=== PATIENT | female | born 1990 | race Caucasian/White ===

== ENCOUNTER → 2017-01-18 | Outpatient (CLI) | payer OTHER | LOC: MHCPAIN 13:50 | DX: G89.29 Other chronic pain (principal); M47.27 Other spondylosis with radiculopathy, lumbosacral region | CPT/HCPCS: G0463 ==

== ENCOUNTER → 2017-02-23 | Outpatient (CLI) | payer OTHER | LOC: MHCPAIN 09:16 → EDSEX 09:16 → MHCPAIN 16:39 | DX: M47.27 Other spondylosis with radiculopathy, lumbosacral region (principal); M51.16 Intervertebral disc disorders with radiculopathy, lumbar region | CPT/HCPCS: J1100; J2250; J3010; Q9967 ==

== ENCOUNTER → 2017-03-10 | Outpatient (CLI) | payer OTHER | LOC: MHCPAIN 09:27 | DX: G89.29 Other chronic pain (principal); M47.27 Other spondylosis with radiculopathy, lumbosacral region; M53.3 Sacrococcygeal disorders, not elsewhere classified | CPT/HCPCS: G0463 ==

== ENCOUNTER 2018-02-24 12:26 | Emergency (ER) | payer OTHER ==
[~2018-02-24] VITALS: Ht 172.7 cm; Wt 81.8 kg
[2018-02-24 12:29] VITALS: TEMP 97.8
[2018-02-24 13:06] LABS: BASO % 0.4 % (0.0-2.0); EOS # 0.2 (0.0-0.7); EOS % 3.6 % (0-4.0); GRAN # 2.9 (1.4-6.5); GRAN % 62.3 % (42.2-75.2); HEMATOCRIT 46.2 % (42.0-52.0); LYMPH # 1.2 (1.2-3.4); LYMPH % 24.6 % (20.0-51.0); MEAN CELL VOLUME 85 fl (80.0-100.0); MEAN CORPUSCULAR HEMOGLOBIN 29 pg (27.0-31.0); MEAN CORPUSCULAR HGB CONC 35 g/dl (33.0-37.0); MEAN PLATELET VOLUME 10.3 fl (7.4-10.4); MONO # 0.4 (0.1-0.6); MONO % 8.3 % (1.7-9.3); PLATELET COUNT 198 K/mm3 (130-400); RED BLOOD COUNT 5.47 M/mm3 (4.20-5.60); REDCELL DISTRIBUTION WIDTH-CV 11.7 % (11.5-14.5)
[2018-02-24 13:14] LABS: ALANINE AMINOTRANSFERASE 129 U/L (21-72); ALBUMIN 4.2 gm/dL (3.5-5.0); ALKALINE PHOSPHATASE 59 U/L (50-136); ANION GAP 7 mmol/L (7-16); AST,SGOT 48 U/L (15-37); BILIRUBIN,TOTAL 0.5 mg/dL (0.0-1.0); BLOOD UREA NITROGEN 16 mg/dL (9-20); CALCIUM 9.3 mg/dL (8.4-10.2); CARBON DIOXIDE 27 mmol/L (22-30); CHLORIDE 107 mmol/L (98-107); CREATININE, serum 0.88 mg/dL (0.66-1.25); GLUCOSE 104 mg/dL (74-106); LIPASE 132 U/L (23-300); POTASSIUM 4.1 mmol/L (3.4-5.0); SODIUM 141 mmol/L (137-145); TOTAL PROTEIN 7.3 gm/dL (6.4-8.2)
[2018-02-24 13:31] LABS: TROPONIN-I < 0.012 ng/mL (0.000-0.034)
[2018-02-24 13:57] VITALS: BP 120/86; PULSE 80
== END 2018-02-24 13:58 | disposition home or self-care (01) ==
LOC: COL.ER 12:26
PROVIDERS: Emergency Medicine
DX: R42 Dizziness and giddiness (principal); R07.89 Other chest pain
CPT/HCPCS: J7030

== ENCOUNTER 2020-09-26 08:33 | Emergency (ER) | payer OTHER | END 2020-09-26 08:40 | disposition home or self-care (01) | LOC: COL.ER 08:33 → EDSTATUS 08:46 | DX: Z48.02 Encounter for removal of sutures (principal) ==

== ENCOUNTER 2023-02-21 18:37 | Emergency (ER) | payer OTHER ==
[~2023-02-21] VITALS: Ht 172.7 cm; Wt 86.4 kg
[~2023-02-21 18:37] MED LIST: PEPCID 20MG TAB20 MG PO; ZOFRAN ODT4 MG PO
[2023-02-21 18:43] VITALS: TEMP 97
[2023-02-21] MEDS ORDERED: CRUTCHES MC (20:03)
[2023-02-21 20:20] VITALS: BP 121/76; PULSE 84
== END 2023-02-21 20:20 | disposition home or self-care (01) ==
LOC: COL.ER 18:37
DX: S93.401A Sprain of unspecified ligament of right ankle, initial encounter (principal); S80.01XA Contusion of right knee, initial encounter; W00.0XXA Fall on same level due to ice and snow, initial encounter; X50.1XXA Overexertion from prolonged static or awkward postures, initial encounter; W22.8XXA Striking against or struck by other objects, initial encounter